=== PATIENT | female | born 1975 | race Caucasian/White ===

== ENCOUNTER 2016-06-06 10:43 | Emergency (ER) | payer OTHER ==
[2016-06-06] MEDS ORDERED: ACETAMINOPHEN TAB 500 MG TAB PO STA (11:15)
--- NOTE | 2016-06-06 11:22 | ED ---
General Adult HPI - General Chief complaint: Fall Stated complaint: fall from bed hurting rt hip, rt leg Time Seen by Provider: 06/06/16 10:45 Source: patient, RN notes reviewed Mode of arrival: ambulatory Limitations: no limitations - History of Present Illness Initial comments: This is a 41-year-old female presents emergency department stating that she was crawling over her 5-year-old son in bed and she fell out of bed and landed on her right hip and now she has right femur pain proximal tibia pain. Patient states she is able to ambulate on it however. Patient states when it happened she became very nauseated and lightheaded and thought she might pass out. Patient denies ever hitting her head patient denies having any neck pain or injury to her neck patient denies any numbness weakness. Patient states now she has a mild headache but she did not have any tenderness on her scalp. Patient denies any chest pain or upper extremity pain patient denied any abdominal pain. Patient denies back pain. - Related Data Home Medications Medication Instructions Recorded Confirmed Sertraline [Zoloft] 50 mg PO HS 06/12/15 06/06/16 Cetirizine HCl [Zyrtec] 10 mg PO DAILY PRN 06/06/16 06/06/16 Famotidine [Pepcid] 20 mg PO DAILY PRN 06/06/16 06/06/16 Levothyroxine Sodium [Synthroid] 150 mcg PO HS 06/06/16 06/06/16 Allergies Allergy/AdvReac Type Severity Reaction Status Date / Time No Known Allergies Allergy Verified 06/06/16 11:06 Review of Systems ROS Statement: Those systems with pertinent positive or pertinent negative responses have been documented in the HPI. ROS Other: All systems not noted in ROS Statement are negative. Past Medical History Past Medical History: Thyroid Disorder History of Any Multi-Drug Resistant Organisms: None Reported Past Surgical History: Section, Hernia Repair Past Psychological History: Depression Smoking Status: Never smoker Past Alcohol Use History: None Reported Past Drug Use History: None Reported General Exam - General Exam Comments Initial Comments: GENERAL Patient is well-developed and well-nourished. Patient is in mild distress. EYES Patient's pupils are equal and round. Extraocular motion is intact SKIN Unremarkable NEURO The patient is alert and oriented 3 PYSCH Patient has normal interpersonal interactions. MUSCULOSKELETAL Patient has tenderness in the lateral aspect of the hip and proximal tibia Limitations: no limitations Course Vital Signs 06/06/16 10:47 Temperature 98.6 F Pulse Rate 83 Respiratory 20 Rate Blood Pressure 117/61 O2 Sat by Pulse 99 Oximetry Medical Decision Making - Medical Decision Making X-ray of the femur and tib-fib show no acute abnormality. Patient was able to ambulate without problem. Patient did not want anything for nausea or pain. Disposition Clinical Impression: Contusion of leg, Fall Disposition: HOME SELF-CARE Condition: Good Instructions: Contusion in Adults (ED) Additional Instructions: Patient should take Motrin 600 mg every 6 hours when necessary for pain Referrals: Basilio Min MD [Primary Care Provider] - 1-2 days Time of Disposition: 12:15
--- NOTE | 2016-06-06 11:48 | XR ---
EXAMINATION TYPE: XR tibia fibula RT DATE OF EXAM ORDERED: 06/06/2016 11:41 AM HISTORY: Pain. COMPARISON: None. FINDINGS: No fracture, dislocation or knee joint effusion is seen. IMPRESSION: NORMAL RIGHT TIBIA AND FIBULA.
--- NOTE | 2016-06-06 11:49 | XR ---
EXAMINATION TYPE: XR femur RT DATE OF EXAM ORDERED: 06/06/2016 11:41 AM HISTORY: Pain. COMPARISON: None. FINDINGS: No fracture, dislocation or other acute osseous lesion is seen. IMPRESSION: NORMAL RIGHT FEMUR.
[2016-06-06 12:38] VITALS: BP 140/57; PULSE 72; RESP 16; TEMP 98.5
== END 2016-06-06 12:30 | disposition home or self-care (01) ==
LOC: EC 10:43
DX: S80.11XA Contusion of right lower leg, initial encounter (principal); E07.9 Disorder of thyroid, unspecified; F32.9 Major depressive disorder, single episode, unspecified; Z79.52 Long term (current) use of systemic steroids; Z79.899 Other long term (current) drug therapy; W06.XXXA Fall from bed, initial encounter
CPT/HCPCS: 99283

== ENCOUNTER → 2017-07-05 | Outpatient (CLI) | payer OTHER ==
[2017-07-05 15:02] LABS: T4, Free (Free Thyroxine) 1.46 ng/dL (0.78-2.19)
[2017-07-09 08:08] LABS: Cotinine <2.0 ng/mL (<2.0); Nicotine <2.0 ng/mL (<2.0)
== END | disposition home or self-care (01) ==
LOC: LABWHC1 13:58
PROVIDERS: ATTEND Internal Medicine Pulmonary Disease
DX: E03.9 Hypothyroidism, unspecified (principal); F17.200 Nicotine dependence, unspecified, uncomplicated
CPT/HCPCS: 84439; 84443; 36415; G0480; 80323

== ENCOUNTER → 2017-09-25 | Outpatient (CLI) | payer OTHER | END | disposition home or self-care (01) | LOC: LABWHC1 13:17 | PROVIDERS: ATTEND Nurse Practitioner | DX: J45.40 Moderate persistent asthma, uncomplicated (principal) | CPT/HCPCS: 36415; 82785 ==